=== PATIENT | male | born 1995 | race Caucasian/White ===

== ENCOUNTER 2025-06-18 02:54 | Emergency (ER) | payer SELFPAY ==
[2025-06-18 03:03] VITALS: BP 140/92
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
== END 2025-06-18 05:30 | disposition home or self-care (01) ==
LOC: EMR 02:54
PROVIDERS: EMERGENCY PHYSICIAN Emergency Medicine
DX: S06.0X0A Concussion without loss of consciousness, initial encounter (principal); X58.XXXA Exposure to other specified factors, initial encounter; Y92.410 Unspecified street and highway as the place of occurrence of the external cause
CPT/HCPCS: 99284; 70450